=== PATIENT | male | born 1950 | race Caucasian/White ===

== ENCOUNTER 2021-10-16 07:23 | Outpatient (CLI) | payer MEDICARE, BC, SELFPAY ==
[2021-10-16 17:02] LABS: Uric Acid* 8.3 mg/dL (2.2-8.4)
[2021-10-16 17:49] LABS: Creatinine* 1.2 mg/dL (0.5-1.5); Estimated Glomerular Filt Rate 64.65
== END 2021-10-16 07:24 | disposition home or self-care (01) ==
LOC: FRMREF 07:24
PROVIDERS: Visit Provider Family Medicine
DX: M10.9 Gout, unspecified (principal)
CPT/HCPCS: 82565; 84550

== ENCOUNTER 2022-07-18 09:55 | Outpatient (CLI) | payer MEDICARE, BC, SELFPAY | END 2022-07-18 09:56 | disposition home or self-care (01) | PROVIDERS: Visit Provider Family Medicine | DX: I10 Essential (primary) hypertension (principal); E78.5 Hyperlipidemia, unspecified; M10.9 Gout, unspecified; R07.89 Other chest pain; G47.33 Obstructive sleep apnea (adult) (pediatric) | CPT/HCPCS: 82550; 82553 ==

== ENCOUNTER 2022-07-31 08:31 | Outpatient (CLI) | payer MEDICARE, BC, SELFPAY | END 2022-07-31 08:32 | disposition home or self-care (01) | LOC: OP CLINIC 08:32 | PROVIDERS: PCP Family Medicine; Visit Provider Surgery | DX: Z12.11 Encounter for screening for malignant neoplasm of colon (principal); K57.30 Diverticulosis of large intestine without perforation or abscess without bleeding; K63.5 Polyp of colon; K62.1 Rectal polyp; Z86.010 Personal history of colon polyps | CPT/HCPCS: 43239; 45385; 88305; 99153; J2250; J3010 ==

== ENCOUNTER 2022-08-07 07:41 | Outpatient (CLI) | payer MEDICARE, BC, SELFPAY ==
--- NOTE | 2022-08-07 08:00 | CRLHL7_ITS ---
For Patients: As a result of the Century Cures Act, medical imaging exams and procedure reports are released immediately into your electronic medical record. You may view this report before your referring provider. If you have questions, please contact your health care provider. [facility] ??? [facility] MYOCARDIAL PERFUSION SCAN, 08/07/2022 CLINICAL HISTORY: 72-year-old male. Chest pressure. Shortness of breath. Hypertension. Elevated lipids. 246 pounds. TECHNIQUE: (Resting SPECT and stress gated SPECT with wall motion and ejection fraction) Stress: Treadmill (7 minutes 0 seconds) Maximum Heart Rate: 152 bpm Maximum Blood Pressure: 182 mmHg systolic Rate Pressure Product: 27,664 Dose (Stress/Rest): 36.4 mCi/10.4 mCi [id number] (IV) Comparison: None FINDINGS: There is good uptake of activity by the left ventricle. No left ventricular enlargement is noted. There is soft tissue attenuation. There is also an apical inferior septal hot-spot. This causes a normalization artifact in the other myocardial segments. Accounting for these findings, there is no convincing evidence for significant myocardial ischemia or infarction. The gated images demonstrate a normal left ventricular ejection fraction of approximately 65%. No regional wall motion abnormalities are identified. IMPRESSION: 1) There is no evidence of significant myocardial ischemia or infarction. 2) Normal left ventricular ejection fraction of approximately 65%. MARCO ALMAGUER M.D. Diagnostic/Nuclear Medicine Radiologist [email or web address] Transcribed: 1:[address]/Dictated by: Marco Almaguer MD @ 08/07/2022 12:43:00 PM (Electronically Signed)
[2022-08-07 09:11] VITALS: BP 118/77; PULSE 95
--- NOTE | 2022-08-07 11:53 | W.PM.STED ---
Stress Test Note Date Date Seen: 08/07/22 Date of test: 08/07/22 Providers Primary care provider: Polly Yo Stress test physician: John Huynh Stress Test Note Stress test ordered: Stress Myoview Indication for test: Chest pain Stress test medicine: None Results discussion: Patient is a very nice gentleman who presents for the above test after discussion the risks benefits and side effects he would like to proceed pretest EKG shows normal sinus rhythm, incomplete right bundle branch block configuration is noted. There is some ST wave changes primarily inferiorly, which may be chronic. Standard Myoview protocol is done, walking, he was able to walk for 7 minutes, achieved about a metabolic equivalent of 8.3 Mets, he had no chest pain, test is terminated because of fulfillment of protocol, there was some ST wave of Flattening with mild inversion noted inferiorly, and also V3 V6, Impression: Mild EKG changes which may be due to inferior and, lateral ischemia. These are very subtle need to be correlated with the nuclear tracing. Follow up suggested: Await nuclear tracing, clinical correlation with these will be needed, patient was subjectively negative. This testing facility in good condition, no complications
== END 2022-08-07 07:42 | disposition home or self-care (01) ==
LOC: STRESS 07:42
PROVIDERS: PCP Family Medicine; Visit Provider Family Medicine
DX: R07.89 Other chest pain (principal); I10 Essential (primary) hypertension; R06.02 Shortness of breath
CPT/HCPCS: 78452; 93016; 93017; A9500

== ENCOUNTER 2022-11-19 07:38 | Outpatient (CLI) | payer MEDICARE, BC, SELFPAY | END 2022-11-19 07:39 | disposition home or self-care (01) | LOC: NFLDREF 14:48 | PROVIDERS: PCP Family Medicine; Referring Provider Family Medicine; Visit Provider Family Medicine | DX: E78.5 Hyperlipidemia, unspecified (principal); I10 Essential (primary) hypertension; M1A.09X0 Idiopathic chronic gout, multiple sites, without tophus (tophi) | CPT/HCPCS: 80053; 80061; 84550 ==

== ENCOUNTER 2022-11-21 10:06 | Outpatient (CLI) | payer MEDICARE, BC, SELFPAY | END 2022-11-21 10:07 | disposition home or self-care (01) | LOC: FRMREF 10:10 | PROVIDERS: PCP Family Medicine; Visit Provider Family Medicine | DX: Z00.00 Encounter for general adult medical examination without abnormal findings (principal); I10 Essential (primary) hypertension; E78.5 Hyperlipidemia, unspecified; M10.9 Gout, unspecified; Z12.5 Encounter for screening for malignant neoplasm of prostate | CPT/HCPCS: 82043; 82570; 84153 ==

== ENCOUNTER 2023-12-03 07:47 | Outpatient (CLI) | payer MEDICARE, BC, SELFPAY | END 2023-12-03 07:48 | disposition home or self-care (01) | LOC: NFLDREF 12-05 12:43 | PROVIDERS: Visit Provider Physician Assistant Medical | DX: Z00.00 Encounter for general adult medical examination without abnormal findings (principal); E78.5 Hyperlipidemia, unspecified; I10 Essential (primary) hypertension; Z12.5 Encounter for screening for malignant neoplasm of prostate | CPT/HCPCS: 80053; 80061; G0103 ==

== ENCOUNTER 2024-12-04 08:10 | Outpatient (CLI) | payer MEDICARE, BC, SELFPAY | END 2024-12-04 08:11 | disposition home or self-care (01) | LOC: NFLDREF 12-08 02:56 | PROVIDERS: PCP Physician Assistant Medical; Referring Provider Physician Assistant Medical; Visit Provider Physician Assistant Medical | DX: E78.2 Mixed hyperlipidemia (principal); I10 Essential (primary) hypertension; Z12.5 Encounter for screening for malignant neoplasm of prostate | CPT/HCPCS: 80053; 80061; 84443; G0103 ==